=== PATIENT | female | born 1975 | race Two or more races ===

== ENCOUNTER 2022-04-29 15:03 | Outpatient (CLI) | payer OTHER ==
[~2022-04-29 15:03] MED LIST: ANTIOXIDANT PO; CALTRATE 600600 MG PO; CVS GLUCOSAMIN1 EACH PO; MASTIC GUM PO; PROBIOTIC PO
== END 2022-04-29 15:05 | disposition home or self-care (01) ==
LOC: SONOGRAMA 15:03
PROVIDERS: ATTEND Obstetrics & Gynecology
DX: N93.9 Abnormal uterine and vaginal bleeding, unspecified (principal); Z01.818 Encounter for other preprocedural examination

== ENCOUNTER 2022-05-05 05:28 | Day surgery (SDC) | payer OTHER ==
[~2022-05-05] VITALS: Ht 157.5 cm; Wt 61.7 kg
[~2022-05-05 05:28] MED LIST changes: +ITCH RELIEF15 G1; +MUPIROCIN; +VITAMIN D PO
== END 2022-05-05 11:00 | disposition home or self-care (01) ==
LOC: CIR.AMB 05:28
PROVIDERS: ATTEND Obstetrics & Gynecology
DX: N84.0 Polyp of corpus uteri (principal); Z20.822 Contact with and (suspected) exposure to COVID-19; Z91.013 Allergy to seafood; Z91.041 Radiographic dye allergy status; Z71.6 Tobacco abuse counseling

== ENCOUNTER 2022-11-14 12:16 | Emergency (ER) | payer OTHER ==
[~2022-11-14] VITALS: Ht 157.5 cm; Wt 62.1 kg
== END 2022-11-14 15:51 | disposition home or self-care (01) ==
LOC: ER 12:16
DX: T78.49XA Other allergy, initial encounter (principal); X58.XXXA Exposure to other specified factors, initial encounter; Z91.041 Radiographic dye allergy status; Z91.013 Allergy to seafood; Z88.8 Allergy status to other drugs, medicaments and biological substances

== ENCOUNTER 2024-12-19 11:41 | Outpatient (CLI) | payer OTHER ==
[~2024-12-19 11:41] MED LIST changes: +DICLOFENAC SOD100 MG PO; +DIOVAN160 M1; +DIOVAN40 MG; +NORFLEX100MG PO
== END 2024-12-19 11:50 | disposition home or self-care (01) ==
LOC: RAD 11:41
PROVIDERS: ATTEND Physical Medicine & Rehabilitation
DX: M62.830 Muscle spasm of back (principal); M25.551 Pain in right hip